=== PATIENT | female | born 1950 | race Caucasian/White ===

== ENCOUNTER 2018-08-08 05:35 | Day surgery (SDC) | payer OTHER ==
[~2018-08-08 05:35] MED LIST: LOSARTAN POTAS100 MG
== END 2018-08-08 17:40 | disposition home or self-care (01) ==
LOC: CIR.AMB 05:35
DX: K64.8 Other hemorrhoids (principal); K64.4 Residual hemorrhoidal skin tags

== ENCOUNTER 2019-08-24 17:18 | Emergency (ER) | payer OTHER ==
[~2019-08-24] VITALS: Ht 167.6 cm; Wt 77.1 kg
[2019-08-24] MEDS ORDERED: DICLOFENAC SODI75 MG PO (18:51)
== END 2019-08-24 19:02 | disposition home or self-care (01) ==
LOC: ER 17:18
DX: M54.2 Cervicalgia (principal)

== ENCOUNTER 2023-08-25 07:15 | Inpatient (IN) | payer OTHER ==
[~2023-08-25] VITALS: Ht 167.6 cm; Wt 70.8 kg
[~2023-08-25 07:15] MED LIST changes: +DICLOFENAC SODI75 MG PO
[2023-08-25 09:24] LABS: HEMATOCRIT 39.7 % (36.0-45.00); HEMOGLOBIN 13.4 g/dL (12.0-15.00); MEAN CELL VOLUME 83.3 fL (80.00-100.00); MEAN CORPUSCULAR HEMOGLOBIN 28.1 pg (27.00-32.0); MEAN CORPUSCULAR HGB CONC 33.7 g/dl (32.0-36.0); PLATELET COUNT 298 K/uL (150-450); RED BLOOD COUNT 4.77 M/uL (4.00-6.00); RED CELL DISTRIBUTION WIDTH 14.9 % (11.5-14.5)
[2023-08-25 09:47] LABS: INR 0.99; PARTIAL THROMBOPLASTIN TIME 27.9 SECONDS (22.0-34.0); PROTHROMBIN TIME 10.4 SECONDS (9.0-11.5)
[2023-08-25 09:55] LABS: ALBUMIN 3.7 gm/dL (3.4-5.0); BILIRUBIN TOTAL 0.58 mg/dL (0.3-1.2); CALCIUM 9.3 mg/dL (8.5-10.1); CREATININE SERUM 0.6 mg/dL (0.55-1.02); GFR 97.46; GLOBULINA 3.8 G/DL (2.4-3.5); POTASSIUM 3.85 mEq/L (3.5-5.1); TOTAL PROTEIN 7.5 gm/dL (6.4-8.2)
[2023-08-31] MEDS ORDERED: LOSARTAN-HCTZ1 EAC2 (07:56)
[2023-08-31] MEDS ORDERED: BIOTIN1 MG (07:56)
[2023-08-31] MEDS ORDERED: PROPRANOLOL HCL10 MG (07:56)
[2023-08-31 14:27] LABS: URINE APPEARANCE Clear; URINE BILIRRUBIN Negative (NEGATIVE); URINE BLOOD Large; URINE COLOR Yellow; URINE GLUCOSE Negative (NEGATIVE); URINE LEUKOCYTE Negative; URINE NITRATE Negative; URINE PROTEIN Negative (NEGATIVE); URINE UROBILINOGEN 0.2 E.U./dl
[2023-08-31 14:31] LABS: URINE BACTERIA 15.1 uL (0.0-1933); URINE RBC 550.9 uL (0.0-20.8)
[2023-08-31 14:46] LABS: URINE EPITHELIAL CELLS 0.4 uL (0.0-38.8)
[2023-08-31 15:25] LABS: ALBUMIN 3.3 gm/dL (3.4-5.0); BILIRUBIN TOTAL 0.65 mg/dL (0.3-1.2); CALCIUM 8.9 mg/dL (8.5-10.1); CREATININE SERUM 0.67 mg/dL (0.55-1.02); GFR 85.8; GLOBULINA 3.2 G/DL (2.4-3.5); POTASSIUM 3.57 mEq/L (3.5-5.1); TOTAL PROTEIN 6.5 gm/dL (6.4-8.2)
[2023-09-01 07:01] LABS: HEMATOCRIT 35.5 % (36.0-45.00); MEAN CELL VOLUME 84.9 fL (80.00-100.00); MEAN CORPUSCULAR HEMOGLOBIN 28.7 pg (27.00-32.0); MEAN CORPUSCULAR HGB CONC 33.8 g/dl (32.0-36.0); PLATELET COUNT 221 K/uL (150-450); RED BLOOD COUNT 4.18 M/uL (4.00-6.00); RED CELL DISTRIBUTION WIDTH 14.4 % (11.5-14.5)
== END 2023-09-01 11:33 | disposition home or self-care (01) | DRG 743 ==
LOC: SURH 08-31 06:20 → O/R 08-31 06:20 → SURH 08-31 07:00 → OB/GYN 08-31 14:45
PROVIDERS: Obstetrics & Gynecology Gynecology; ADMIT Obstetrics & Gynecology; ATTEND Obstetrics & Gynecology
PROC: 0UT74ZZ Resection of Bilateral Fallopian Tubes, Percutaneous Endoscopic Approach (ICD-10-PCS; 2023-08-31)
PROC: 0UT24ZZ Resection of Bilateral Ovaries, Percutaneous Endoscopic Approach (ICD-10-PCS; 2023-08-31)
PROC: 0UT94ZZ Resection of Uterus, Percutaneous Endoscopic Approach (ICD-10-PCS; principal; 2023-08-31 07:00)
DX: N84.0 Polyp of corpus uteri (principal); N72 Inflammatory disease of cervix uteri; Z20.822 Contact with and (suspected) exposure to COVID-19